=== PATIENT | male | born 1995 | race Caucasian/White ===

== ENCOUNTER 2020-10-14 13:13 | Emergency (ER) | payer OTHER ==
[~2020-10-14] VITALS: Ht 175.3 cm; Wt 59.0 kg
[2020-10-14 13:15] VITALS: BP 137/78
--- NOTE | 2020-10-14 13:15 | NUR ---
PT TAKEN TO ER BED 10.
--- NOTE | 2020-10-14 13:19 | NUR ---
FLORINA Blackmon at pt bedside for further evaluation.
[2020-10-14] MEDS ORDERED: NACL 0.9% 1,000 ML IV ONE ×2 (13:25→14:35)
--- NOTE | 2020-10-14 13:26 | NUR ---
certified veterinary technician at pt bedside.
[2020-10-14 13:49] LABS: BASOPHILS % (AUTO) 0.4 % (0.0-2.0); EOSINOPHILS % (AUTO) 0.4 % (0.0-4.0); HEMATOCRIT 44.5 % (36-52); LYMPHOCYTES # (AUTO) 1.6 K/uL (2.0-11.5); MEAN CORPUSCULAR HEMOGLOBIN 31 pg (27-31); MEAN CORPUSCULAR HGB CONC 34 g/dL (33-37); MEAN CORPUSCULAR VOLUME 90.6 fL (80-94); MONOCYTES # (AUTO) 0.5 K/uL (0.8-1.0); MONOCYTES % (AUTO) 7.1 % (1.7-9.3); NEUTROPHILS # (AUTO) 4.7 K/uL (1.8-7.7); NEUTROPHILS % (AUTO) 68.1 % (42.2-75.2); PLATELET COUNT (AUTO) 265 K/uL (140-450); RED BLOOD CELL COUNT(AUTO) 4.92 MIL/uL (4.20-6.10); RED CELL DISTRIBUTION WIDTH 12.1 % (11.6-13.7); WHITE BLOOD COUNT (AUTO) 6.8 K/uL (4.8-10.8)
--- NOTE | 2020-10-14 13:51 | NUR ---
25 Y/O BIBA FROM HOME C/O HEART PALPITATIONS, ELEVATED HEART RATE, PT STATED HE WAS GOING TO DRIVE HIMSELF HERE BUT FELT FAINT. PT STATED CHEST PAIN 09/17. PMH:ANXIETY DENIES TAKING ANY MEDICATIONS NKA
--- NOTE | 2020-10-14 14:06 | NUR ---
Pt ambulated to restroom for UA collection, walked to lab.
[2020-10-14 14:14] LABS: ALBUMIN 4.2 g/dL (3.4-5.0); ANION GAP 9.1 (8-16); CARBON DIOXIDE 28.3 mmol/L (21-32); CREATININE 1.1 mg/dL (0.6-1.3); FREE T4 (FREE THYROXINE) 1.08 ng/dL (0.76-1.46); POTASSIUM 3.4 mmol/L (3.5-5.1); THYROID STIMULATING HORMONE 0.66 uIU/mL (0.34-3.74); TOTAL BILIRUBIN 0.5 mg/dL (0.0-1.0)
[2020-10-14 14:17] LABS: BARBITURATE, URINE NEGATIVE ng/ml (NEG <=200); BENZODIAZEPINE, URINE NEGATIVE ng/mL (NEG <=200); CANNABINOID, URINE NEGATIVE ng/mL (NEG <=50); COCAINE, URINE NEGATIVE ng/mL (NEG <=300); OPIATE, URINE NEGATIVE ng/mL (NEG <=2000); PHENCYCLIDINE SCREEN,URINE NEGATIVE ng/mL (NEG <=25)
[2020-10-14] MEDS ORDERED: HYDR-637 PO (14:22)
--- NOTE | 2020-10-14 14:58 | NUR ---
Pt resting, visible equal rise and fall of chest, VSS, will continue to monitor.
[2020-10-14 15:40] VITALS: BP 107/69
--- NOTE | 2020-10-14 15:41 | NUR ---
Patient discharged with v/s stable. Written and verbal after care instructions given and explained. Patient alert, oriented and verbalized understanding of instructions. Ambulatory with steady gait. All questions addressed prior to discharge. ID band removed. Patient advised to follow up with PMD. Rx of HYDROXYZINE 25MG PO BID PRN ANXIETY given. Patient educated on indication of medication including possible reaction and side effects. Opportunity to ask questions provided and answered.
== END 2020-10-14 15:41 | disposition home or self-care (01) ==
LOC: MED 13:13
DX: F41.9 Anxiety disorder, unspecified (principal); Z79.899 Other long term (current) drug therapy
CPT/HCPCS: 36415; 71045; 80053; 80305; 84439; 84443; 85025; 85379; 93005; 96360; 96361; 99285; J7030